=== PATIENT | female | born 1960 | race Caucasian/White ===

== ENCOUNTER 2016-06-15 09:16 | Outpatient (CLI) | payer OTHER ==
[2016-06-15 09:44] LABS: Bilirubin Negative (Negative); Blood, Urine Negative (Negative); Clarity Clear (Clear); Glucose, Urine (Dipstick) Negative (Negative); Leukocyte Negative (Negative); Nitrite Negative (Negative); Protein, Urine (Dipstick) Negative (Neg-Trace); Urobilinogen 0.2 mg/dL (0.2-1.0)
[2016-06-15 09:52] LABS: #Basophils 0.2 thou/uL (0.0-0.2); #Eosinphils 0.3 thou/uL (0.0-0.7); #Lymphocytes 3.9 thou/uL (1.20-3.40); #Monocytes 0.6 thou/uL (0.11-0.59); #Neutrophils 4.2 thou/uL (1.40-6.50); %Basophils 2.2 % (0.0-1.0); %Eosinophils 3.3 % (0.0-10.0); %Lymphocytes 42.5 % (21.0-51.0); %Monocytes 6.3 % (0.0-10.0); %Neutrophils 45.7 % (42.0-75.0); Hemoglobin 16.7 g/dL (12.0-16.0); Mean Corpuscular HGB CONC 32.7 g/dL (32.0-36.0); Mean Corpuscular Hemoglobin 31.5 pg (27.0-31.0); Mean Corpuscular Volume 96.3 fl (81.0-99.0); Mean Platelet Volume 8.3 fL (7.4-10.4); Platelet Count 175 thou/uL (130-400); RBC Distribution Width 13.1 % (11.5-14.5); Red Blood Cell (RBC) Count 5.29 mill/uL (4.20-5.40); White Blood Cell (WBC) Count 9.1 thou/uL (4.8-10.8)
[2016-06-15 09:57] LABS: Bacteria/HPF Rare-Few HPF (None Seen); RBC/HPF 0-3 HPF (0-3); Squamous Epithelial 0-3 HPF (0-3); WBC/HPF 0-3 HPF (0-3)
[2016-06-15 10:03] LABS: ALT (SGPT) 34 U/L (0-55); AST (SGOT) 22 U/L (5-34); Alkaline Phosphatase 121 U/L (40-150); Anion Gap 19 mmol/L (10-20); BUN (Urea Nitrogen) 17 mg/dL (9.8-20.1); Bilirubin, Total 0.6 mg/dL (0.2-1.2); Calc. Creatinine Clearance 0 mL/min (70-130); Calcium 10.1 mg/dL (7.8-10.44); Carbon Dioxide 20 mmol/L (22-29); Cardiac Risk 3.9 (Less than 4.5); Chloride 106 mmol/L (98-107); Cholesterol 181 mg/dL (< 200 Desired); Estimated GFR-MDRD 44; Globulin 3.6 g/dL (2.4-3.5); Glucose 144 mg/dL (70-105); HDL Cholesterol 47 mg/dL (>60 Neg Risk); LDL Cholesterol, Calculated 100 mg/dL; Potassium 4.7 mmol/L (3.5-5.1); Protein, Total 7.6 g/dL (6.0-8.3); Sodium 140 mmol/L (136-145); Triglycerides 170 mg/dL (Less than 150)
[2016-06-15 10:04] LABS: Hemoglobin A1c 6.1 % (4.0-6.0)
[2016-06-15 17:52] LABS: Creatinine, Urine 69.76 mg/dL (47-110); Microalbumin Urine 1.8 mg/dL (0.5-50.0); Microalbumin/Creat Ratio 25.8 mg/g (Less than 30)
== END 2016-06-15 09:17 | disposition home or self-care (01) ==
LOC: MADLABBHPM 09:16
PROVIDERS: ATTEND Family Medicine
DX: E11.40 Type 2 diabetes mellitus with diabetic neuropathy, unspecified (principal); E55.9 Vitamin D deficiency, unspecified; E78.5 Hyperlipidemia, unspecified; R10.9 Unspecified abdominal pain
CPT/HCPCS: 36415; 80053; 80061; 81001; 82043; 82306; 82570; 83036; 85025

== ENCOUNTER 2016-06-25 08:02 | Outpatient (CLI) | payer OTHER ==
--- NOTE | 2016-06-25 10:15 | RAD ---
KUB: Date: 06/25/16 INDICATION: Right flank pain with soft tissue mass. COMPARISON: Prior CT of the abdomen and pelvis dated 04/07/15. FINDINGS: The lung bases are clear. The bowel gas pattern is nonobstructed. There are cholecystectomy clips wi thin the right upper quadrant. There is a mild amount of retained stool within the colon. There is a well corticated calcification seen along the inferior aspect of the right symphysis pubis, which is nonspecific. No acute osseous abnormality is evident. IMPRESSION: 1. No acute abnormality. 2. Small calcifications seen within the soft tissues near the right symphysis pubis may reflect a g ranuloma in the right gluteal region or possibly soft tissue calcification in the vulva region. If t here is clinical concern, further evaluation with CT of the pelvis may be helpful. POS: ELLY
--- NOTE | 2016-06-25 11:06 | ULT ---
ABDOMINAL ULTRASOUND 06/25/2016 HISTORY: Right flank pain. History also indicates soft tissue mass on the right. FINDINGS: The distal abdominal aorta is obscured by bowel gas. The proximal and mid abdominal aorta, visualiz ed portions of the IVC, visualized portions of the pancreas, liver, spleen, and bilateral kidneys de monstrate a normal sonographic appearance. The right kidney measures 10.1 cm in length. The left k idney measures 10.8 cm in length. The common duct measures 0.4 cm in diameter which is within karla l limits. The gallbladder is not visualized consistent with reported history of a prior cholecystec jey. Sonographic evaluation of the right aspect of the abdomen for evaluation of patient's reported mass was performed. However, no discrete mass is seen. IMPRESSION: 1. Cholecystectomy. 2. No acute findings are seen on this abdominal ultrasound examination. 3. Clinical history of soft tissue mass on the right. However, no obvious discrete mass is seen on sonographic evaluation. CT scan of the abdomen is suggested for further evaluation. POS: ELLY
== END 2016-06-25 08:03 | disposition home or self-care (01) ==
LOC: MADULT 08:02
PROVIDERS: ATTEND Family Medicine
DX: R10.9 Unspecified abdominal pain (principal); R19.00 Intra-abdominal and pelvic swelling, mass and lump, unspecified site
CPT/HCPCS: 74000; 76700

== ENCOUNTER 2016-10-30 07:50 | Outpatient (CLI) | payer OTHER ==
[2016-10-30 08:31] LABS: Hemoglobin A1c 7.8 % (4.0-6.0)
[2016-10-30 08:39] LABS: ALT (SGPT) 45 U/L (8-55); AST (SGOT) 35 U/L (5-34); Albumin 3.8 g/dL (3.5-5.0); Alkaline Phosphatase 124 U/L (40-150); Anion Gap 17 mmol/L (10-20); BUN (Urea Nitrogen) 16 mg/dL (9.8-20.1); Bilirubin, Total 0.6 mg/dL (0.2-1.2); Calc. Creatinine Clearance 0 mL/min (70-130); Calcium 9.8 mg/dL (7.8-10.44); Carbon Dioxide 20 mmol/L (22-29); Cardiac Risk 3.5 (Less than 4.5); Chloride 106 mmol/L (98-107); Cholesterol 165 mg/dl (< 200 Desired); Estimated GFR-MDRD 49; Globulin 3.5 g/dL (2.4-3.5); Glucose 192 mg/dL (70-105); HDL Cholesterol 47 mg/dL (>60 Neg Risk); LDL Cholesterol, Calculated 89 mg/dL; Potassium 4.7 mmol/L (3.5-5.1); Protein, Total 7.3 g/dL (6.0-8.3); Sodium 138 mmol/L (136-145); Triglycerides 146 mg/dL (Less than 150)
[2016-10-30 08:58] LABS: #Basophils 0.2 thou/uL (0.0-0.2); #Eosinphils 0.3 thou/uL (0.0-0.7); #Lymphocytes 3.7 thou/uL (1.20-3.40); #Monocytes 0.4 thou/uL (0.11-0.59); #Neutrophils 2.9 thou/uL (1.40-6.50); %Basophils 2.5 % (0.0-1.0); %Eosinophils 4.4 % (0.0-10.0); %Lymphocytes 49.4 % (21.0-51.0); %Monocytes 5.7 % (0.0-10.0); Hemoglobin 15.8 g/dL (12.0-16.0); Mean Corpuscular HGB CONC 32.5 g/dL (32.0-36.0); Mean Corpuscular Hemoglobin 32.2 pg (27.0-31.0); Mean Corpuscular Volume 98.8 fl (81.0-99.0); Mean Platelet Volume 10.1 fL (7.4-10.4); Platelet Count 138 thou/uL (130-400); RBC Distribution Width 12.5 % (11.5-14.5); Red Blood Cell (RBC) Count 4.91 mill/uL (4.20-5.40); White Blood Cell (WBC) Count 7.5 thou/uL (4.8-10.8)
[2016-10-30 09:25] LABS: Thyroid Stimulating Hormone 1.3419 uIU/mL (0.35-4.94)
== END 2016-10-30 07:51 | disposition home or self-care (01) ==
LOC: MADLABBHPM 07:50
PROVIDERS: ATTEND Family Medicine
DX: E55.9 Vitamin D deficiency, unspecified (principal); I12.9 Hypertensive chronic kidney disease with stage 1 through stage 4 chronic kidney disease, or unspecified chronic kidney disease; N18.9 Chronic kidney disease, unspecified; E11.40 Type 2 diabetes mellitus with diabetic neuropathy, unspecified; E78.5 Hyperlipidemia, unspecified
CPT/HCPCS: 36415; 80053; 80061; 82306; 83036; 84443; 85025

== ENCOUNTER 2017-01-17 07:44 | Outpatient (CLI) | payer OTHER ==
[2017-01-17 08:17] LABS: Anion Gap 17 mmol/L (10-20); BUN (Urea Nitrogen) 16 mg/dL (9.8-20.1); Calc. Creatinine Clearance 0 mL/min (70-130); Calcium 9.3 mg/dL (7.8-10.44); Chloride 109 mmol/L (98-107); Estimated GFR-MDRD 51; Glucose 107 mg/dL (70-105); Potassium 4.5 mmol/L (3.5-5.1); Sodium 142 mmol/L (136-145)
[2017-01-17 09:33] LABS: Carbon Dioxide 21 mmol/L (22-29)
== END 2017-01-17 07:45 | disposition home or self-care (01) ==
LOC: MADLAB 07:44
PROVIDERS: ATTEND Internal Medicine Nephrology
DX: I12.9 Hypertensive chronic kidney disease with stage 1 through stage 4 chronic kidney disease, or unspecified chronic kidney disease (principal); N18.3 Chronic kidney disease, stage 3 (moderate)
CPT/HCPCS: 36415; 80048

== ENCOUNTER 2018-03-27 13:22 | Emergency (ER) | payer OTHER | END 2018-03-27 13:46 | disposition home or self-care (01) | LOC: MADERS 13:22 | DX: L03.311 Cellulitis of abdominal wall (principal); I10 Essential (primary) hypertension; E11.40 Type 2 diabetes mellitus with diabetic neuropathy, unspecified; E78.00 Pure hypercholesterolemia, unspecified; F17.210 Nicotine dependence, cigarettes, uncomplicated; Z79.4 Long term (current) use of insulin; Z79.899 Other long term (current) drug therapy | CPT/HCPCS: 99283 ==

== ENCOUNTER 2022-09-06 09:37 | Emergency (ER) | payer OTHER ==
[2022-09-06 10:58] LABS: ALT (SGPT) 12 U/L (8-55); AST (SGOT) 14 U/L (5-34); Albumin 2.5 g/dL (3.4-4.8); Alkaline Phosphatase 116 U/L (40-110); Anion Gap 14 mmol/L (10-20); BUN (Urea Nitrogen) 37 mg/dL (9.8-20.1); Bilirubin, Total 0.5 mg/dL (0.2-1.2); Calc. Creatinine Clearance 0 mL/min (70-130); Calcium 8.8 mg/dL (7.8-10.44); Carbon Dioxide 27 mmol/L (23-31); Chloride 108 mmol/L (98-107); Estimated GFR 41; Globulin 3.6 g/dL (2.4-3.5); Glucose 210 mg/dL (80-115); Potassium 5.9 mmol/L (3.5-5.1); Protein, Total 6.1 g/dL (5.8-8.1); Sodium 143 mmol/L (136-145)
[2022-09-06 11:11] LABS: #Basophils 0.1 thou/uL (0.0-0.2); #Lymphocytes 1.7 thou/uL (1.20-3.40); #Monocytes 0.5 thou/uL (0.11-0.59); %Eosinophils 0.6 % (0.0-10.0); %Lymphocytes 23.1 % (21.0-51.0); %Monocytes 6.7 % (0.0-10.0); %Neutrophils 68.5 % (42.0-75.0); Anisocytosis SLIGHT = 6-15 cells (100X) (0-5/hpf); Hemoglobin 4.2 g/dL (12.0-16.0); Hypochromia MARKED = >30 cells (100X) (0-5/hpf); MDiff Complete? YES; Mean Corpuscular HGB CONC 27.9 g/dL (32.0-36.0); Mean Corpuscular Hemoglobin 27.7 pg (27.0-31.0); Mean Platelet Volume 6.2 fL (7.4-10.4); Platelet Count 180 10x3/uL (130-400); Polychromasia MARKED = >4 cells (100X) (0-2/hpf); RBC Distribution Width 17.9 % (11.5-14.5); Red Blood Cell (RBC) Count 1.53 mill/uL (4.20-5.40); Reflex for Review?? YES; White Blood Cell (WBC) Count 7.3 10x3/uL (4.8-10.8)
[2022-09-06 11:12] LABS: Platelet Morphology Comment Appears Adequate
[2022-09-06 11:19] LABS: Bilirubin Negative (Negative); Blood, Urine Small (Negative); Glucose, Urine (Dipstick) Negative (Negative); Ketone, Urine Negative (Negative); Leukocyte Small (Negative); Nitrite Positive (Negative); Protein, Urine (Dipstick) > or equal to 300 mg/dL (Neg-Trace); Specific Gravity, Urine 1.025 (1.005-1.030); Urobilinogen 0.2 mg/dL (Less than 2); pH, Urine 5.5 (5.0-9.0)
[2022-09-06 11:38] LABS: Clarity Cloudy (Clear); RBC/HPF 0-3 HPF (0-3); WBC/HPF Greater than 50 HPF (0-3)
[2022-09-06 11:39] LABS: Bacteria/HPF 2+ HPF (None Seen); Squamous Epithelial 0-3 HPF (0-3)
[2022-09-06] MEDS ORDERED: Sodium Chloride 0.9% 0 ML ONE (11:46)
[2022-09-06] MEDS ORDERED: Pantoprazole 40 MG VIAL ONE ×2 (11:46→12:35)
[2022-09-06] MEDS ORDERED: Insulin Regular 300 UNITS/3 ML VIAL ONE (12:36)
[2022-09-06] MEDS ORDERED: Dextrose 50% Abboject 50 ML SYRINGE ONE (12:36)
[2022-09-06 12:56] LABS: Potassium 5.5 mmol/L (3.5-5.1)
[2022-09-06] MEDS ORDERED: HUM PROTHROMBIN CPLX(PCC)4FACT 1,000 UNIT VIAL ONE (13:05)
[2022-09-06] MEDS ORDERED: Ciprofloxacin Lactate/D5W 400 mg/200 ml Premix ONE (13:57)
[2022-09-06] MEDS ORDERED: Human Prothrombin Complx(PCC) 500 UNIT VIAL ONE (14:07)
[2022-09-06] MEDS ORDERED: Acetaminophen 325 MG TAB ONE (14:07)
[2022-09-06] MEDS ORDERED: Sodium Chloride 0.9% 1,000 ML ONE (15:37)
[2022-09-06] MEDS ORDERED: Sodium Chloride 0.9% 100 ML ONE (15:37)
[2022-09-06] MEDS ORDERED: Ondansetron ODT 4 MG TAB SL PRN (17:00)
[2022-09-06] MEDS ORDERED: Ondansetron PF 4 MG/2 ML Vial IVP PRN (17:00)
== END 2022-09-06 14:39 | disposition short-term general hospital (02) ==
LOC: MADERS 09:37
DX: D64.9 Anemia, unspecified (principal); K92.2 Gastrointestinal hemorrhage, unspecified; E87.5 Hyperkalemia; M10.9 Gout, unspecified; I48.91 Unspecified atrial fibrillation; G47.30 Sleep apnea, unspecified; F17.210 Nicotine dependence, cigarettes, uncomplicated; E11.9 Type 2 diabetes mellitus without complications; I10 Essential (primary) hypertension; E78.00 Pure hypercholesterolemia, unspecified; Z79.01 Long term (current) use of anticoagulants; Z79.4 Long term (current) use of insulin; Z79.899 Other long term (current) drug therapy
CPT/HCPCS: 36415; 36430; 51701; 71045; 80053; 81003; 81015; 82274; 83880; 84484; 85025; 85060; 86850; 86900; 86901; 87077; 87086; 87186; 93005; 96365; 96366; 96375; C9113; J0744; J1815; J7030; J7168; J7999; P9016

== ENCOUNTER 2023-10-08 13:20 | Outpatient (CLI) | payer OTHER | END 2023-10-08 13:21 | disposition home or self-care (01) | LOC: MADRAD 13:20 | PROVIDERS: ATTEND Family Medicine | DX: R06.02 Shortness of breath (principal); J98.11 Atelectasis; J90 Pleural effusion, not elsewhere classified | CPT/HCPCS: 71046 ==